=== PATIENT | female | born 1990 | race Two or more races ===

== ENCOUNTER → 2017-11-17 | Day surgery (SDC) | payer OTHER ==
[~2017-11-17] VITALS: Ht 144.8 cm; Wt 63.0 kg
== END | disposition home or self-care (01) ==
LOC: ER 07:42 → CIR.AMB 09:41
DX: O03.4 Incomplete spontaneous abortion without complication (principal)

== ENCOUNTER 2018-03-14 10:29 | Emergency (ER) | payer OTHER ==
[~2018-03-14] VITALS: Ht 144.8 cm; Wt 65.8 kg
== END 2018-03-14 15:42 | disposition home or self-care (01) ==
LOC: ER 10:29
DX: O26.891 Other specified pregnancy related conditions, first trimester (principal); R19.7 Diarrhea, unspecified; Z34.01 Encounter for supervision of normal first pregnancy, first trimester

== ENCOUNTER 2018-09-17 17:00 | Outpatient (CLI) | payer OTHER | END 2018-09-18 08:51 | disposition home or self-care (01) | LOC: OBS/DEL 17:00 | DX: O47.1 False labor at or after 37 completed weeks of gestation (principal); Z34.83 Encounter for supervision of other normal pregnancy, third trimester ==

== ENCOUNTER 2020-11-10 10:00 | Inpatient (IN) | payer OTHER ==
[~2020-11-10] VITALS: Ht 144.8 cm; Wt 79.4 kg
[2020-11-12] MEDS ORDERED: PRENATAL TABLE1 EAC1 PO (06:54)
[2020-11-12] MEDS ORDERED: FOLIC ACID0.8 M1 PO (06:55)
== END 2020-11-15 12:27 | disposition home or self-care (01) | DRG 788 ==
LOC: OB/GYN 11-12 06:18 → O/R 11-12 06:18 → OB/GYN 11-12 09:15
PROVIDERS: ADMIT Obstetrics & Gynecology; ATTEND Obstetrics & Gynecology
PROC: 4A1HXFZ Monitoring of Products of Conception, Cardiac Rhythm, External Approach (ICD-10-PCS; 2020-11-12)
PROC: 10D00Z1 Extraction of Products of Conception, Low, Open Approach (ICD-10-PCS; principal; 2020-11-12 09:15)
DX: O34.211 Maternal care for low transverse scar from previous cesarean delivery (principal); Z53.29 Procedure and treatment not carried out because of patient's decision for other reasons; Z3A.39 39 weeks gestation of pregnancy; Z37.0 Single live birth

== ENCOUNTER 2023-01-22 08:11 | Emergency (ER) | payer OTHER ==
[~2023-01-22] VITALS: Ht 144.8 cm; Wt 77.1 kg
[~2023-01-22 08:11] MED LIST: FOLIC ACID0.8 M1 PO; PRENATAL TABLE1 EAC1 PO
[2023-01-22 10:17] LABS: ALBUMIN 4.2 gm/dL (3.4-5.0); BILIRUBIN TOTAL 0.45 mg/dL (0.3-1.2); CALCIUM 9.1 mg/dL (8.5-10.1); CREATININE SERUM 0.71 mg/dL (0.55-1.02); GFR 96.66; GLOBULINA 3.8 G/DL (2.4-3.5); POTASSIUM 3.88 mEq/L (3.5-5.1)
[2023-01-22 10:19] LABS: HEMATOCRIT 37.8 % (36.0-45.00); HEMOGLOBIN 11.8 g/dL (12.0-15.00); MEAN CORPUSCULAR HEMOGLOBIN 20.2 pg (27.00-32.0); MEAN CORPUSCULAR HGB CONC 31.3 g/dl (32.0-36.0); PLATELET COUNT 305 K/uL (150-450); RED BLOOD COUNT 5.86 M/uL (4.00-6.00); RED CELL DISTRIBUTION WIDTH 17.9 % (11.5-14.5)
[2023-01-22 10:20] LABS: MEAN CELL VOLUME 64.5 fL (80.00-100.00)
== END 2023-01-22 11:19 | disposition home or self-care (01) ==
LOC: ER 08:11
PROVIDERS: General Practice
DX: K52.9 Noninfective gastroenteritis and colitis, unspecified (principal)